=== PATIENT | female | born 1965 | race Caucasian/White ===

== ENCOUNTER → 2018-07-19 10:07 | Outpatient (CLI) | payer OTHER, SELFPAY ==
[2018-07-19 12:21] LABS: Absolute Lymphocyte Count 1.75 X10^3/ul (0.83-4.51); Absolute Neutrophil Count 2.8 X10^3/uL (2.0-7.7); Basophil# 0.08 X10^3/uL; Basophil% 1.5 % (0-1); Eosinophil# 0.29 X10^3/uL; Eosinophils% 5.4 % (0-5); Hematocrit 41.8 % (37-47); Hemoglobin 13.9 g/dl (12.0-15.0); Lymphocyte # 1.75 X10^3/ul (4.0); Lymphocyte % 32.6 % (19-41); Mean Corp Hgb Conc 33.3 g/gl (32-36); Mean Corpuscular Hgb 28.7 pg (27.0-32.0); Mean Corpuscular Volume 86.2 fL (81-99); Mean Platelet Vol. 10.9 fl (6.2-12.0); Monocyte% 7.5 % (0-10); Neutrophil # 2.82 X10^3/uL (2.7-7.7); Neutrophil % 52.6 % (47-70); Platelet Count 286 K/mm3 (150-450); RBC Distribution Width CV 13.6 % (11.6-14.6); RBC Distribution Width SD 42.2 fl (35.1-43.9); Red Blood Count 4.85 M/mm3 (4.2-5.4); White Blood Count 5.4 K/mm3 (4.4-11.0)
[2018-07-19 12:38] LABS: POSITIVE COUNT NO; POSITIVE DIFFERENTIAL NO; POSITIVE MORPHOLOGY NO
[2018-07-19 12:43] LABS: Vitamin D,25 Hydroxy 26.4 ng/mL (29.95-100.01)
[2018-07-19 12:50] LABS: Anion Gap 6 (5-15); BUN 12 mg/dL (7-18); BUN/Creat Ratio 14.2 RATIO (10-20); Calcium,Total 9.1 mg/dL (8.5-10.1); Chloride 106 mmol/L (98-107); Cholesterol 225 mg/dL (200); Creatinine, Serum 0.85 mg/dL (0.55-1.02); EST Glomerular Filtration Rate 75 mL/min (>60); Est Glom Filt Rate - Afr Amer 91 mL/min (>60); Glucose 85 mg/dL (74-106); High Density Lipoprotein 55 mg/dL; Potassium 4.3 mmol/L (3.5-5.1); Sodium Level 139 mmol/L (136-145); Thyroid Stim Hormone (TSH) 1.75 uIU/mL (0.358-3.74); Triglycerides 118 mg/dL; Very Low Density Lipoprotein 24 mg/dL (5-40)
== END ==
PROVIDERS: Family Provider Family Medicine; PCP Family Medicine; Visit Provider Family Medicine
DX: Z00.00 Encounter for general adult medical examination without abnormal findings (principal); R07.9 Chest pain, unspecified
CPT/HCPCS: 36415; 80048; 80061; 82306; 84443; 85025

== ENCOUNTER → 2018-08-02 06:56 | Outpatient (CLI) | payer OTHER, SELFPAY ==
--- NOTE | 2018-08-02 07:53 | CDU_ITS ---
Reason For Study: TIA Rt. Velocities/BP Lt. Velocities/BP Prox CCA 85.0/21.7 cm/sec. Prox CCA 79.2/24.0 cm/sec. Mid CCA 90.3/28.7 cm/sec. Mid CCA 76.8/27.0 cm/sec. Dist CCA 82.7/28.7 cm/sec. Dist CCA 73.9/31.7 cm/sec. Prox ICA 63.3/14.7 cm/sec. Prox ICA 69.2/29.3 cm/sec. Mid ICA 75.6/33.4 cm/sec. Mid ICA 68.3/25.8 cm/sec. Dist ICA 77.3/34.4 cm/sec. Dist ICA 84.9/38.8 cm/sec. Rt. ICA/CCA = .86. Lt. ICA/CCA = 1.1. Prox ECA 96.7/26.4 cm/sec. Prox ECA 73.9/22.3 cm/sec. Rt. Vert. 59.8/22.3 cm/sec. Lt. Vert. 39.9/14.7 cm/sec. Right Extracranial There is no significant atherosclerotic plaque noted in the right common carotid artery. There is no significant atherosclerotic plaque noted in the right internal carotid artery. There is no significant atherosclerotic plaque noted in the right external carotid artery. Antegrade flow is noted in the right vertebral artery. Left Extracranial There is no significant atherosclerotic plaque noted in the left common carotid artery. There is no significant atherosclerotic plaque noted in the left internal carotid artery. There is no significant atherosclerotic plaque noted in the left external carotid artery. Antegrade flow is noted in the left vertebral artery. Procedure Carotid Duplex 13217. Exam performed in department. Interpretation Summary No significant atherosclerotic plaque or stenosis noted in the internal carotid arteries bilaterally. Flow within the vertebral arteries is antegrade bilaterally. Ordering Physician: Toni Stiles Referring Physician: Toni Stiles Performed By: Kimberly Tran RVT
== END ==
PROVIDERS: Family Provider Family Medicine; PCP Family Medicine; Referring Provider Family Medicine; Visit Provider Family Medicine
DX: G45.9 Transient cerebral ischemic attack, unspecified (principal)
CPT/HCPCS: 93880

== ENCOUNTER → 2018-08-05 05:45 | Outpatient (CLI) | payer OTHER, SELFPAY ==
--- NOTE | 2018-08-05 10:28 | STRESSREP_ITS ---
Stress Test Report Exercise myocardial perfusion stress test. 53-year-old lady with a history of chest pain. Stress protocol: Resting EKG demonstrates normal sinus rhythm with a rate of 64 bpm normal intervals noted resting blood pressure 110/60 millimeter. The patient exercised according to regular Cameron protocol for a total duration of 5 minutes the [place] heart rate attained was 139 bpm which was 82% of maximum predicted heart rate the maximum workload was 7 metabolic equivalents. Patient completed 2 minutes into stage II of the Cameron protocol. The maximum blood pressure was 144/60 mmHg. At rest there were no ST or T wave changes noted suggest ischemia peak exercise no ST or T wave changes were noted suggest ischemia. Myocardial perfusion protocol. 12.0 mCi of technetium 99m sestamibi was injected at rest. The patient exercised according to regular Cameron protocol for 5 minutes and at peak exercise 31.0 mCi of technetium 99m sestamibi was injected stress images were obtained stress and rest images were reconstructed and compared in the short axis vertical long and horizontal long axis. Gated images were also obtained per Perfusion SPECT analysis: Review of the stress images demonstrate normal uptake of tracer noted in all areas of the myocardium. The resting images similarly demonstrate normal uptake of tracer noted in all areas of the myocardium. No reversibility is noted suggest ischemia no previous infarct is noted. Gated SPECT analysis: The gated ejection fraction is noted to be 74%. Conclusion: Normal exercise myocardial perfusion stress test at a moderate workload. Preserved ejection fraction.
== END ==
PROVIDERS: Family Provider Family Medicine; PCP Family Medicine; Referring Provider Family Medicine; Visit Provider Family Medicine
DX: R07.9 Chest pain, unspecified (principal)
CPT/HCPCS: 78452; 93017; A9500; A4216

== ENCOUNTER 2021-01-27 14:40 | Emergency (ER) | payer BC, SELFPAY ==
[2021-01-27 14:41] VITALS: BP 115/66; PULSE 93; RESP 17; TEMP 36.4; O2SAT 97; BMI 29.9
[2021-01-27 16:18] VITALS: BP 115/71; PULSE 81; RESP 16; O2SAT 99
[2021-01-27] MEDS: Lidocaine 1% (20 ml mdv) 20 ML Vial INFILT (16:31)
--- NOTE | 2021-01-27 17:09 | EX.ED.UPPERE ---
HPI History of Present Illness Chief Complaint: Laceration Informant: patient Occured/Mechanism Mechanism/Context: Yes crush Onset/Context/Timing Onset: Today Context: Onset with activity Timing: Continuous Quality of Pain: Dull Worsened by: Movement Relieved by: Nothing Associated Symptoms Associated Symptoms: Negative for Parasthesia and Weakness Narrative Narrative: Patient presents with laceration to her right thumb that occurred today. Patient states she was doing laundry and got her thumb caught in a ringer. Patient states that her thumb has been bleeding since the injury. Patient is unsure of her last tetanus. Patient denies any paresthesias or weakness. Patient denies any other injuries. Tetanus Immunization: Unknown PFSH PFS Medical History Anxiety Capps's palsy Smoker Home Medications buspirone 15 mg PO DAILY 01/27/21 [History Last Taken Unknown] cephalexin 500 mg PO Q6 #40 capsule 01/27/21 [Rx Last Taken Unknown] fluoxetine [Prozac] 40 mg PO DAILY 01/27/21 [History Last Taken Unknown] Allergy/AdvReac Type Severity Reaction Status Date / Time codeine Allergy Itching Verified 01/27/21 14:43 Surgical History (Updated 01/27/21 @ 17:[address] Eduardo Blancas DO) History of bilateral tubal ligation History of foot surgery History of tonsillectomy Social History Smoking Status: Current every day smoker ROS ROS ED Constitutional Constitutional ED: Denies chills or fever(s) Eyes Eyes: Denies blurry vision or change in vision ENT ENT ED: Denies rhinorrhea or sore throat Cardiovascular Cardiovascular: Denies chest pain or palpitations Respiratory/Chest Respiratory/Chest: Denies cough or dyspnea Gastrointestinal Gastrointestinal: Denies nausea or vomiting Genitourinary Genitourinary ED: Denies dysuria or hematuria Musculoskeletal Musculoskeletal: Denies back pain or neck pain Integumentary Denies abscess or rash Neurologic Neurologic: Denies headache(s) or weakness Allergic/Immunologic Allergic/Immunologic ED: Denies mouth swelling or urticaria EXAM Physical Exam Const Vital Signs: 01/27/21 14:41 01/27/21 16:18 Temperature 97.6 F L Temperature Source Temporal Pulse Rate 93 81 Respiratory Rate 17 16 Blood Pressure 115/66 115/71 Blood Pressure Mean 82 85 Pulse Ox 97 99 Oxygen Delivery Method Room Air Room Air Positive well nourished and well developed General Appearance ED: well developed HEENT Reports moist mucous membranes normocephalic Extremity Extremity Narrative: There is a 5 cm full-thickness V-shaped laceration over the volar aspect of the proximal phalanx of the right thumb. There is moderate gapping of the wound margins. The flexor tendon is exposed. There is no tendon laceration noted. There are no foreign bodies noted. There is moderate bleeding. Sensation was intact to light touch in all digits. Capillary refill is less than 2 seconds in all digits. Strength is 5/5 in flexion and extension of the IP and MP joints. Neuro oriented x3, CN's II-XII intact bilaterally, moves all extremities, no focal motor deficits and no sensory deficits noted Sensorium / Orientation: alert Psych mental status grossly normal MDM MDM MDM Narrative Medical decision making narrative: Patient was given a tetanus booster. The wound was cleaned and irrigated with copious amounts of normal saline. The wound was anesthetized with 1% plain lidocaine via digital block. The wound was closed with 7 simple interrupted #4-0 nylon sutures under sterile technique. Patient tolerated the procedure well. Bacitracin dressing was applied. Patient was given a dose of Keflex here. Patient was given a prescription for Keflex. Patient was instructed to keep the wound clean and dry. Patient was instructed to follow-up with her primary care physician in 7 to 10 days for wound recheck and suture removal. Patient understood and was agreeable with the plan. All questions were answered. Procedures Lacerations Right thumb: Length: 5 cm Depth: Sub Q Shape: Linear Prep: Sterile Conditions and Shure-Clens Laceration repair: Digital block, Irrigated, Lidocaine, Skin sutures and Wound explored Irrigated (ml): 100 Number of Sutures/[place]: 7 Suture Information: Ethilon, Simple and 4-0 Discharge Plan Triage Chief Complaint: Laceration ED Provider: Eduardo Blancas Dx/Rx/DC Orders Clinical Impression: Laceration of right thumb Instructions: ED Laceration, Hand: All Closures Prescriptions: New cephalexin [cephalexin] 500 MG capsule 500 mg PO Q6 Qty: 40 RF: 0 No Action fluoxetine [Prozac] 40 mg capsule 40 mg PO DAILY RF: 0 buspirone 15 mg tablet 15 mg PO DAILY RF: 0 Primary Care Provider: Giovanni Guajardo Referrals: Giovanni Guajardo MD [Primary Care Provider] - 10 Day for suture removal Disposition Disposition: Home, self care
[2021-01-27 17:26] VITALS: BP 105/60; PULSE 89; RESP 16; O2SAT 96
[2021-01-27] MEDS: Diphth,Pertuss(Acell),Tet Vac 0.5 ML Vial IM (17:28)
[2021-01-27] MEDS: Cephalexin 500 MG Capsule PO (17:28)
[2021-01-27 18:03] VITALS: PULSE 88; RESP 15; O2SAT 98
== END 2021-01-27 18:04 | disposition home or self-care (01) ==
PROVIDERS: Emergency Provider Emergency Medicine; PCP Family Medicine
DX: S61.011A Laceration without foreign body of right thumb without damage to nail, initial encounter (principal); F41.9 Anxiety disorder, unspecified; Z79.899 Other long term (current) drug therapy; F17.200 Nicotine dependence, unspecified, uncomplicated; Z23 Encounter for immunization; W31.89XA Contact with other specified machinery, initial encounter; Y93.E2 Activity, laundry; Y92.008 Other place in unspecified non-institutional (private) residence as the place of occurrence of the external cause; Y99.8 Other external cause status
CPT/HCPCS: 12002; 90715; 99284; A4216

== ENCOUNTER → 2024-12-11 | Outpatient (CLI) | payer OTHER, SELFPAY ==
--- NOTE | 2024-12-11 12:37 | RAD_ITS ---
PROCEDURE: ABD INC DECUB AND/OR ERECT 12/11/2024 REASON FOR EXAM: ABDOMINAL PAIN TECHNIQUE: Upright AP view of the abdomen and 2 supine AP views of the abdomen to include the entire abdomen and pelvis, 3 total images COMPARISON: None available FINDINGS: Portion of the right hemidiaphragm is excluded on the upright view limiting evaluation for potential free air. The bowel gas pattern appears within limits. No gaseous distention of bowel or evidence of mass effect identified. No abnormal abdominal calcification seen. Visualized lung bases appear clear. Visualized osseous structures appear within limits. RAD/Abd Inc Decub and/or Erect IMPRESSION: Portion of the right hemidiaphragm is excluded on the upright view limiting jhony luation for potential free air. The bowel gas pattern appears within limits. No gaseous distention of bowel or evidence of ma ss effect identified. Reading Location: [id number]
== END | disposition home or self-care (01) ==
LOC: MTRAD 12:35
PROVIDERS: PCP Family Medicine; Referring Provider Family Medicine; Visit Provider Family Medicine
DX: R10.9 Unspecified abdominal pain (principal)
CPT/HCPCS: 74019

== ENCOUNTER → 2025-09-14 | Outpatient (CLI) | payer OTHER, SELFPAY ==
--- NOTE | 2025-09-14 14:55 | RAD_ITS ---
PROCEDURE: WRIST MIN 3 VIEWS 09/14/2025 REASON FOR EXAM: FALL WITH INJURY TECHNIQUE: Procedure Code: RADWR Modality: DX Procedure: WRIST MIN 3 VIEWS COMPARISON: None FINDINGS: No acute fracture or suspicious osseous lesion. Mild narrowing of the radioscaphoid joint space without subchondral changes. Other joint spaces well-preserved. No suspicious soft tissue swelling or foreign body RAD/Wrist min 3 Views IMPRESSION: Mild, age consistent degenerative changes, no acute findings Reading Location: [id number]
--- OUTSIDE RECORDS SUMMARY | 2025-09-14 19:56 | XMS RPT_ITS | CCD ---
Author Organization [facility] Care Team Providers Care Boiler Testing Technician Name Role Phone Tj [employer], Ilda S Unavailable Unavailable Primary Care Provider Tiff mari Unavailable Primary Care Provider Ronald Alford MD Primary Care Provider Unavailable Primary Care Provider Ronald Alford MD Primary Care Provider Casandra MERRILL, Dr. Davila Primary Care Provider Go MERRILL, Dr. Muñoz Attending Provider Dr. Toni Stiles MD Referring Provider Ronald Guajardo Primary Care Unavailable Toni Stiles Referring Unavailable Toni Stiles Attending Unavailable Allergies Allergy Classification Reported Allergen(s) Allergy Type Date of Onset Reaction(s) Facility (6 sources) Codeine; Translations: [codeine] Drug Allergy 6 Itching [facility] (3 sources) Naproxen Drug Allergy 6 Mental Status Change [facility] Work Phone: Medications Current Medications Medication Drug Class(es) Dates Sig (Normalized) Sig (Original) aspirin 81 mg delayed release oral tablet (3 sources) Platelet Aggregation Inhibitor, Nonsteroidal Anti-inflammatory Drug take 1 tablet by mouth once daily aspirin, enteric coated (ASPIRIN, ENTERIC COATED) 81 mg EC tablet Take 81 mg by mouth once daily. 0 Active Comment on above: Take 81 mg by mouth once daily. busPIRone hydrochloride 15 mg oral tablet (12 sources) Start: 01-27-2021 take 1 tablet by mouth once daily Buspirone 15 mg tablet Active 15 mg PO DAILY January 27, 2021 12:00am Start: 10-02-2020 take 1 tablet by kim th twice daily busPIRone (BUSPAR) 15 mg tablet Indications: Anxiety Take 1 tablet by mouth twice daily. 180 tablet 1 10/02/2020 Active Start: 09-08-2015 take 1 tablet by kim twice daily BUSPIRONE HCL 15 MG TABS One tablet by mouth twice daily BUSPIRONE HCL [id number] Lesvia Morrison RN take 1 tablet by kim twice daily busPIRone (BUSPAR) 10 MG tablet Indications: CMT (Pupixqb-Mpbiv-Xpmli disease) Take 10 mg by mouth 2 times daily. Active Comment on above: Take 1 tablet by kim twice daily. cephalexin 500 mg oral capsule (1 source) Cephalosporin Antibacterial Start: 1 take 1 capsule by mouth every six hours Cephalexin 500 MG capsule Active 500 mg PO EVERY 6 HOURS 40 January 27, 2021 12:00am FLUoxetine 40 mg oral capsule (12 sources) Serotonin Reuptake Inhibitor Start: 1 take 1 capsule by mouth once daily Fluoxetine (Prozac) 40 mg capsule Active 40 mg PO DAILY January 27, 2021 12:00am Start: 09-08-2015 take 1 tablet by kim once daily FLUOXETINE HCL 20 MG TABS One tablet by mouth daily FLUOXETINE HCL [id number] Lesvia Morrison RN take 1 capsule by [facility] daily fluoxetine (PROZAC) 20 MG capsule Indications: CMT (Aoizvkg-Seepp-Tokmh disease) Take 20 mg by mouth daily. Active Comment on above: Take 1 capsule by [facility] daily. Naproxen (7 sources) Nonsteroidal Anti-inflammatory Drug Naproxen Sodium (KAREN VE ORAL) Indications: CMT (Deetrar-Xxlgg-Zybkl disease) Take by mouth. Active Naproxen Sodium (ALEVE ORAL) Indications: CMT (Iyhhuro-Dexuh-Vwsup disease) Take by mouth. 0 Active Completed/Discontinued Medications Medication Drug Class(es) Dates Sig (Normalized) Sig (Original) diclofenac sodium 0.03 mg/mg topical gel (2 sources) Nonsteroidal Anti-inflammatory Drug Start: 09-08-2015 End: 06-26-2017 DICLOFENAC SODIUM 3 % GEL apply twice daily DICLOFENAC SODIUM [id number] Lesvia Morrison RN Problems Active Problems Problem Classification Problem Date Documented Date Episodic/Chronic Abdominal pain (1 source) Unspecified abdominal pain; Translations: [Unspecified abdominal pain] Onset: 12-18-2024 Episodic Anxiety disorders (3 sources) Anxiety; Translations: [Anxiety disorder, unspecified] Onset: 02-05-2017 06-15-2017 Chronic Menopausal disorders (1 source) Postmenopausal bleeding; Translations: [Postmenopausal bleeding] Onset: 06-26-2017 06-26-2017 Chronic Open wounds of extremities (1 source) Laceration of right thumb; Translations: [Laceration without foreign body of right thumb without damage to nail, initial encounter] 01-27-2021 Episodic Other nervous system disorders (10 sources) Hereditary motor and sensory neuropathy; 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 04-08-2015 Chronic Other screening for suspected conditions (not mental disorders or infectious disease) (2 sources) Patient encounter status; Translations: [Encounter for screening mammogram for malignant neoplasm of breast] Episodic Substance-related disorders (1 source) Tobacco dependence syndrome; Translations: [Nicotine dependence, unspecified, uncomplicated] Onset: 09-08-2015 09-08-2015 Chronic Past or Other Problems Problem Classification Problem Date Documented Da te Episodic/Chronic Nonspecific chest pain (3 sources) Chest pain; Translations: [Chest pain, unspecified] Onset: 01-16-2013 Resolved: 02-05-2017 09-08-2015 Episodic Other connective tissue disease (2 sources) Fibromyalgia; Translations: [Fibromyalgia] Onset: 12-16-2014 Resolved: 04-28-2015 04-28-2015 Episodic Other lower respiratory disease (1 source) Dyspnea; Translations: [Shortness of breath] Onset: 09-08-2015 09-08-2015 Episodic Residual codes; unclassified (3 sources) Tobacco user; Translations: [Tobacco use] Onset: 02-05-2017 02-05-2017 Episodic Results Test Name Value Interpretation Reference Range Facility [facility] Decub and/or Erecton 12-11-2024 Abd Inc Decub and/or Erect [facility] Imaging Services [address] [place] [address] [employer] Decub and/or Erect MR#: [id number] Acct: [id number] Name: PREMA GALLEGOBRANDIE Bowie Rep #: [id number] : 1965 F 59 From: Luis Barros MD PCP: Dr. Ronald Guajardo MD Status: REG CLI Study: [employer] Decub and/or Erect Date of Exam: 12/11 Exam# [id number] Ordering Dr: Toni Stiles MD PROCEDURE: ABD INC DECUB AND/OR ERECT 12/11/2024 REASON FOR EXAM: ABDOMINAL PAIN TECHNIQUE: Upright AP view of the abdomen and 2 supine AP views of the abdomen to include the entire abdomen and pelvis, 3 total images COMPARISON: None available FINDINGS: Portion of the right hemidiaphragm is excluded on the upright view limiting evaluation for potential free air. The bowel gas pattern appears within limits. No gaseous distention of bowel or evidence of mass effect identified. No abnormal abdominal calcification seen. Visualized lung bases appear clear. Visualized osseous structures appear within limits. RAD/[facility] [employer] Decub and/or Erect IMPRESSION: Portion of the right hemidiaphragm is excluded on the upright view limiting evaluation for potential free air. The bowel gas pattern appears within limits. No gaseous distention of bowel or evidence of mass effect identified. Reading Location: [id number] CC: Dr. Toni Stiles MD; Dr. Ronald Guajardo MD Metal Ceiling Builder: Signed [facility] Office Visit: postmenopausal bleedingon 06-26-2017 Fall risk assessment No Invalid Interpretation Code [facility] Protein mass conc Done Invalid Interpretation Code [facility] Tobacco smoking status NHIS Never Invalid Interpretation Code [facility] Tobacco smoking status FLIS Current every day smoker Invalid Interpretation Code [facility] Clinical Lists Update: Prelo stockroom coordinator 12-17-2014 Chloride molar conc 102 mmol/L Invalid Interpretation Code [facility] CO2 ppres (BldV) 23 mmol/L Invalid Interpretation Code [facility] Creatinine mass conc 0.84 mg/dL Invalid Interpretation Code [facility] Glucose mass conc 72 mg/dL Invalid Interpretation Code [facility] Potassium molar conc 4.8 mmol/L Invalid Interpretation Code [facility] Sodium molar conc 140 mmol/L Invalid Interpretation Code [facility] Thyrotropin Qn 1.54 u[iU]/mL Invalid Interpretation Code [facility] Urea nitrogen mass conc 20 mg/dL Invalid Interpretation Code [facility] Clinical Lists Update: Prelo stockroom coordinator 12-16-2014 Hematocrit Auto Volume Fraction (Bld) 39.6 % Invalid Interpretation Code [facility] Hemoglobin mass conc (Bld) 12.8 g/dL Invalid Interpretation Code [facility] MCH Auto Entitic mass (RBC) 27.9 pg Invalid Interpretation Code [facility] MCHC Auto mass conc (RBC) 32.3 g/dL Invalid Interpretation Code [facility] MCV Auto Entitic volume (RBC) 86.5 fL Invalid Interpretation Code [facility] Platelets Auto #/vol (Bld) 253 10*3/mm3 Invalid Interpretation Code [facility] RBC Auto #/vol (Bld) 4.58 10*6/uL Invalid Interpretation Code [facility] WBC Auto #/vol (Bld) 5.92 10*3/uL Invalid Interpretation Code [facility] Clinical Lists Update: Prelo stockroom coordinator 10-25-2010 Cholesterol in HDL mass conc 67 mg/dL Invalid Interpretation Code [facility] Cholesterol in LDL mass conc 75 mg/dL Invalid Interpretation Code [facility] Cholesterol mass conc 155 mg/dL Invalid Interpretation Code [facility] Lipoprotein.pre-bet a mass conc 13 mg/dL Invalid Interpretation Code [facility] Triglyceride mass conc 66 mg/dL Invalid Interpretation Code [facility] Vital Signs Date Time Vital Sign Value Performing Clinician Facility 06-26-2017 14:56-0400 BMI (Body Mass Index) 30.48 kg/m2 Ilda Spencer NP [facility] [place] 06-26-2017 14:56-0400 Body Temperature 97 [degF] Ilda Spencer NP [facility] [place] 06-26-2017 14:56-0400 BP Diastolic 74 mm[Hg] Ilda Spencer NP [facility] [place] 06-26-2017 14:56-0400 BP Systolic 105 mm[Hg] Ilda Spencer NP [facility] [place] 06-26-2017 14:56-0400 Height 162.56 cm Ilda Spencer NP [facility] [place] 06-26-2017 14:56-0400 Pulse (Heart Rate) 89 /min Ilda Spencer NP [facility] 06-26-2017 14:56-0400 Respiratory Rate 16 /min Ilda Spencer NP [facility] 06-26-2017 14:56-0400 Weight 80.56 kg Ilda Spencer NP [facility] Encounters Encounter Date Encounter Type Care Provider Facility Start: 05-23-2025 End: 05-23-2025 Letter encounter [facility] Start: 12-11-2024 End: 12-11-[address] Ronald Guajardo MD Work Phone: [facility] Work Phone: Start: 12-11-2024 End: 12-11-[address] Toni Stiles MD -Radiology, [place] Work Phone: Start: 12-11-2024 End: 12-11-2024 ambulatory Ronald Guajardo Facility:[facility] Start: 02-06-2024 ambulatory Ronald Guajardo MD Work Phone: Internal Medicine [facility] Start: 01-15-2024 ambulatory Cecily Underwood MA [facility] Start: 08-26-2023 Letter encounter [facility] Start: 03-15-2022 ambulatory Ronald Guajardo MD Work Phone: Internal Medicine [facility] Start: 02-26-2022 Letter encounter [facility] Start: 11-27-2021 Letter encounter [facility] Start: 02-20-2021 End: 02-20-2021 Letter encounter [facility] Start: 12-12-2020 End: 12-12-2020 Orders Only Khadra Villegas Work Phone: [facility] Start: 11-21-2020 End: 11-21-2020 Letter encounter [facility] Procedures Date Procedure Procedure Detail Performing Clinician Start: 12-11-2024 Plain X-ray abdomen Dr. Ronald Guajardo MD Work Phone: Start: 07-08-2019 Adult depression screening assessment Ronald Guajardo MD Work Phone: Start: 06-26-2017 Cervical smear biops y taken Pap smear Ilda Spencer NP Start: 06-26-2017 End: 06-26-2017 Endometrial bx w/wo endocervix bx w/o dilat spx Ilda Spencer [employer] [facility] Work Phone: Start: 06-26-2017 Screening mammography Mammogra m yearly screening Ilda Tj [employer] [facility] Start: 02-06-2017 Lipid 1996 panel - S sobeida or Plasma Cecily Underwood MA Start: 02-11-2015 Mammography Ronald Sol MD Work Phone: Plan of Treatment Date Care Activity Detail Author Start: 01-27-2031 Urine microalbumin profile DTaP,Tdap,Td Vaccine (2 - Td or Tdap) [facility] Start: 06-17-2025 Influenza vaccination Influenza Vacc ine (#1) [facility] Start: 05-18-2025 COVID-19 Vaccine ( season) COVID-19 Vaccine ( season) [facility] Start: 05-18-2024 Influenza vaccination Influenz a Vaccine (Season Ended) [facility] Start: 09-17-2023 Behavioral Health Screening Behavioral Health Screening [facility] Start: 05-18-2023 Covid-19 Vaccine ( season) Covid-19 Vaccine ( season) [facility] Start: 05-18-2023 Influenza vaccination Influenza Vacc ine (#1) [facility] Start: 05-18-2022 Influenza vaccination INFLUENZ A (Season Ended) [facility] Start: 02-06-2022 Lipid panel Lipid Screening [facility] Start: 02-06-2022 LIPID SCREEN LIPID SCREEN [facility] Start: 04-17-2021 Influenza vaccination Influenza Vacc ine (#1) [facility] Start: 07-08-2020 Adult depression screening assessment DEPRESSION SCREENING [facility] Start: 06-17-2020 Influenza vaccination Influenza Vacc ine (#1) [facility] Start: 02-07-2020 DIABETES SCREEN DIABETES SCREEN [facility] Start: 02-07-2020 Diabetes Screening Diabetes Screenin g [facility] Start: 06-21-2018 COLORECTAL CANCER SCREENING COLORECTAL CANCER SCREENING [facility] Start: 06-21-2018 FECAL OCCULT BLOOD FECAL OCCULT BLOO D [facility] Start: 06-21-2018 Screening for malign ant neoplasm of colon [facility] Start: 07-24-2017 HPV TESTING HPV TESTING [facility] Start: 07-24-2017 PAP TESTING PAP TESTING [facility] Start: 07-24-2017 Screening for malign ant neoplasm of cervix [facility] Start: 06-26-2017 End: 06-26-2017 Appointment Appointment [facility] Start: 06-26-2017 End: 06-26-2017 *CBC with Differential *CBC with Differential [facility] Start: 06-26-2017 End: 06-26-2017 Endometrial bx w/wo endocervix bx w/o dilat spx Endometrial Biopsy [facility] Start: 06-26-2017 End: 06-26-2017 Mammogram, screening Mammogram, Screening, both breasts [facility] Start: 06-26-2017 End: 06-26-2017 Thyrotropin Qn *TSH [facility] Start: 06-26-2017 End: 06-26-2017 Us pelvic nonobstetric real-time image complete US Pelvis [facility] Start: 06-26-2017 End: 06-26-2017 Us transvaginal US Transvaginal [facility] Start: 2017 Measurement of occul t blood in single stool specimen FIT [facility] Start: 2017 Pneumococcal vaccination Pneumococcal Vaccine(s) (50+ yrs) (1 of 1 - PCV) [facility] Start: 2017 Screening for malign ant neoplasm of breast Mammography [facility] Start: 2017 Screening for malign ant neoplasm of colon CRC Screening [facility] Start: 2017 SHINGRIX VACCINE (1 of 2) SHINGRIX VACCINE (1 of 2) [facility] Start: 2017 Varicella-zoster vaccine (product) Shingles (RZV) Vaccine (1 of 2) [facility] Start: 02-12-2016 Mammography MAMMOGRAM [facility] Start: 02-12-2016 Screening for malign ant neoplasm of breast Mammogram Screening [facility] Start: 2012 Cholesterol [Mass/Vol] Cholesterol [facility] Start: 2012 COLOGUARD (FIT-DNA) COLOGUARD (FIT-D NA) [facility] Start: 2012 Colonoscopy COLONOSCOPY [facility] Start: [address] COLONOGRAPHY [facility] Start: 2012 Lipid panel Cholesterol [facility] Start: 2012 Screening for malign ant neoplasm of colon [facility] Start: 2012 SIGMOIDOSCOPY SIGMOIDOSCOPY [facility] Start: 2007 Screening for malign ant neoplasm of breast [facility] Start: 1988 Screening for malign ant neoplasm of cervix [facility]ear [facility] Start: 1986 Hepatitis A (HAV) Vaccine (optional start 19+ years) Hepatitis A (HAV) Vaccine (optional start 19+ years) [facility] Start: 1986 Hepatitis B vaccination Hepati tis B (HBV) Vaccine (1 of 3 - 19+ 3-dose series) [facility] Start: 1986 Hepatitis B Vaccine (1 of 3 - 19+ 3-dose series) Hepatitis B Vaccine (1 of 3 - 19+ 3-dose series) [facility] Start: 1986 Urine microalbumin profile DTAP,TDAP,TD (1 - Tdap) [facility] Start: 1985 Hepatitis C antibody , confirmatory test [facility] Start: 1985 Hepatitis C screening M [facility] Start: 1985 HEPATITIS C SCREENING HEPATITIS C SD REENING [facility] Start: 1985 HIV SCREENING HIV SCREENING [facility] Start: 1985 HIV screening HIV Screening [facility] Start: 1985 Tetanus + diphtheria + acellular pertussis vaccine (product) Tdap Booster [facility] Start: 1982 HIV screening HIV Test [facility] Start: 1979 COVID-19 Vaccine (1) COVID-19 Vaccin e (1) [facility] Start: 1973 PNEUMOCOCCAL (1 - PCV) PNEUMOCOCCAL (1 - PCV) [facility] Start: 1973 Pneumococcal vaccination Pneumococcal Vaccine (1 of 2 - PCV) [facility] Start: 1972 COVID-19 Vaccine (#1) COVID-19 Vacci ne (#1) [facility] Start: 1972 COVID-19 Vaccine (1) COVID-19 Vaccin e (1) [facility] Start: 1967 COVID-19 Vaccine (#1) COVID-19 Vacci ne (#1) [facility] Start: 1967 Colonoscopy [facility] Start: 1967 Screening for malign ant neoplasm of colon Colonoscopy [facility] End: 03-07-2025 MG Breast Screening ANDREW SCREENING Radiology Routine Encounter for screening mammogram for breast cancer 1 Occurrences starting 02/06/2024 until 03/07/2025 [facility] Work Phone: Comment on above: 1 Occurrences starti ng 02/06/2024 until 03/07/2025 End: 04-14-2023 Screening mammography bi 2-view breast inc cad ANDREW SCREENING Radiology Routine Encounter for screening mammogram for breast cancer 1 Occurrences starting 03/15/2022 until 04/14/2023 [facility] Work Phone: Comment on above: 1 Occurrences starti ng 03/15/2022 until 04/14/2023 Immunizations Immunization Date Immunization Notes Care Provider Fa cility 01-27-2021 tetanus toxoid, redu rosanna diphtheria toxoid, and acellular pertussis vaccine, adsorbed Cecily Underwood MA [facility] 06-15-2017 influenza virus vacc ine, unspecified formulation Cecily Underwood MA [facility] 10-04-2012 influenza, seasonal, injectable, preservative free Cecily Underwood [facility] Payers Date Payer Category Payer Private Health Insurance [id number] 2024 Self-pay 2019 Unknown IRENE GUERRA PPO [id number] 2019-Present [phone] [address] [place] [address] PPO [id number] 2015 Commercial Indemnity [employer] - HMO/PPO/POS [id number] 2015 Unknown [employer] - HMO/PPO/POS [employer] PPO/CLASSIC/PLUS [id number] 2015-Present PPO [id number] 2015 Unknown [id number] Unknown ANTHEM [id number] Unknown [id number] Unknown [id number] Social History Date Type Detail Facility Start: 04-08-2015 End: 01-27-2021 Tobacco smoking status FLIS Current every day smoker [facility] Start: 04-08-2015 Alcohol intake Current drinker of alcohol (finding) [facility] Start: 1965 Sex Assigned At Not on file [facility] Start: 04-08-2015 End: 08-25-2020 Alcohol intake [facility] History of tobacco use Cigarette Smoker C [facility] Start: 09-30-2020 Alcohol intake Current non-drinker of alcohol (finding) [facility] Start: 09-30-2020 History SDOH Alcohol Frequency 1 [facility] Start: 09-30-2020 History SDOH Social Connections Phone 5 [facility] Start: 09-30-2020 History SDOH Social Connections Membership 2 [facility] Start: 09-30-2020 History SDOH Social Connections Living 3 [facility] Start: 09-30-2020 History SDOH Physical Activity DPW 4 [facility] Start: 09-30-2020 Education 21 [facility] Start: 08-25-2020 End: 09-30-2020 Gender identity Not on file [facility] Start: 11-10-2016 Tobacco use and exposure Smokeless tobacco non-user [facility] Do you belong to any clubs or organizations such as uatsdin groups, unions, fraternal or athletic groups, or school groups? No [facility] Are you now , , , , never or living with a partner? [facility] How often to you hav e a drink containing alcohol? Never [facility] Average Number of Drinks Not on file [facility] How hard is it for y ou to pay for the very basics like food, housing, medical care, and heating Not very hard [facility] Do you feel stress - tense, restless, nervous, or anxious, or unable to sleep at night because your mind is troubled all the time - these days [OSQ] Not at all [facility] (I/We) worried wheth er (my/our) food would run out before (I/we) got money to buy more. Never true [facility] Start: 01-27-2021 Cigarettes Cigarettes [facility] Start: 02-16-2015 End: 12-18-2024 Sex Female (finding) [facility] Start: 1965 Sex Assigned At Female [facility] Start: 04-08-2015 Details of drug misuse behavior Does not misuse drugs (situation) [facility] Clinical Notes 12-16-2014 to 12-12-2024 Cecily Underwood MA - 01/15/2024 3:12 PM EDT Note Date & Type Note Facility 12-12-2024 Radiology Diagnostic study note [facility] Imaging Services [address] [place], [place] [id number] [employer] Decub and/or Erect MR#: [id number] Acct: [id number] Name: KEKE GALLEGO Rep #: [id number] : 1965 F 59 From: Clinton Barros MD PCP: Dr. Ronald Guajardo MD Status: REG C LI Study:[employer] Decub and/or Erect Date of Exam : 12/11/24 Exam# [id number] Ordering Dr: Toni Stiles MD PROCEDURE: ABD INC DECUB AND/OR ERECT 12/11/2024 REASON FOR EXAM: ABDOMINAL PAIN TECHNIQUE: Upright AP view of the abdomen and 2 supine AP views of the abdomen to include the entire abdomen and pelvis, 3 total images COMPARISON: None available FINDINGS: Portion of the right hemidiaphragm is excluded on the upright view limiting evaluation for potential free air. The bowel gas pattern appears within limits. No gaseous distention of bowel or evidence of mass effect identified. No abnormal abdominal calcification seen. Visualized lung bases appear clear. Visualized osseous structures appear within limits. RAD/Abd Inc Decub and/or Erect IMPRESSION: Portion of the right hemidiaphragm is excluded on the upright view limiting evaluation for potential free air. The bowel gas pattern appears within limits. No gaseous distention of bowel or evidence of mass effect identified. Reading Location: [id number] CC: Dr. Toni Stiles MD; Dr. Ronald Guajardo MD ~ Metal Ceiling Builder: Signed [facility] 02-06-2024 Note Patient Outreach (IN TMMN) KEKE GALLEGO ([id number]) 1965 F Date Time Provider Department 02/06/24 RONALD GUAJARDO During your visit today, we recorded the following information about you: Allergies As of Date: 02/06/2024 Noted Allergy Reaction CODEINE 02/16/2006 9 - Itching NAPROSYN (NAPROXEN) 09/30/2015 1 - Mental Status Change Date Reviewed: 07/08/2019 Reviewed by: Alexus Davis (Senior Investigator) - Fully Assessed Visit Diagnosis:Encounter for screening mammogram for breast cancer [Z12.31] Order(s):[facility] SCREENING [[id number]] Order #: [id number] FUTURE Prescriptions as of 02/11/2024 - busPIRone (BUSPAR) 15 mg tablet Take 1 tablet by mouth twice daily. - FLUoxetine HCl (PROZAC) 40 mg capsule Take 1 capsule by mouth once daily. - aspirin, enteric coated (ASPIRIN, ENTERIC COATED) 81 mg EC tablet Take 81 mg by mouth once daily. 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 Author Type: Crane Man Type: Progress Notes Filed: 01/15/2024 15:19 Note Text: POPULATION HEALTH NAVIGATION OUTREACH Action/FYI Last office visit 10/02/20, no showed for 04/04/21 Reason for Outreach Care Gap/HCC or Scheduling Wellness Visits Care Gaps due: Physical Annual Wellness Visit Breast Cancer Screening Patient Contacted: Letter mailed Navigation Signature: Cecily Underwood MA January 15, 2024 3:12 PM [facility] 01-15-2024 History of Present illness Narrative POPULATION HEALTH NAVIGATION OUTREACH Action/FYI Last office visit 10/02/20, no showed for 04/04/21 Reason for Outreach Care Gap/HCC or Scheduling Wellness Visits Care Gaps due: Physical Annual Wellness Visit Breast Cancer Screening Patient Contacted: Letter mailed Navigation Signature: Cecily Underwood MA January 15, 2024 3:12 PM documented in this encounter [facility] 01-15-2024 Note Patient Outreach (FA MPWS) KEKE GALLEGO ([id number]) 1965 F Date Time Provider Department 01/15/24 CECILY UNDERWOOD During your visit today, we recorded the following information about you: Cecily Underwood MA 01/15/2024 3:19 PM Signed POPULATION HEALTH NAVIGATION OUTREACH Action/FYI Last office visit 10/02/20, no showed for 04/04/21 Reason for Outreach Care Gap/HCC or Scheduling Wellness Visits Care Gaps due: Physical Annual Wellness Visit Breast Cancer Screening Patient Contacted: Letter mailed Navigation Signature: Cecily Underwood MA January 15, 2024 3:12 PM Allergies As of Date: 01/15/2024 Noted Allergy Reaction CODEINE 02/16/2006 9 - Itching NAPROSYN (NAPROXEN) 09/30/2015 1 - Mental Status Change Date Reviewed: 07/08/2019 Reviewed by: Alexus Davis (Senior Investigator) - Fully Assessed Prescriptions as of 01/15/2024 - busPIRone (BUSPAR) 15 mg tablet Take 1 tablet by mouth twice daily. - FLUoxetine HCl (PROZAC) 40 mg capsule Take 1 capsule by mouth once daily. - aspirin, enteric coated (ASPIRIN, ENTERIC COATED) 81 mg EC tablet Take 81 mg by mouth once daily. 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] Anxiety [F41.9] 02/05/2017 Tobacco abuse [Z72.0] 02/05/2017 Letter Text Encounter Status:Closed by CECILY UNDERWOOD on 01/15/24 [facility] 02-21-2023 Note Patient Outreach (IN TMMN) KEKE GALLEGO Azeb ([id number]) 1965 F Date Time Provider Department 02/21/23 RONALD GUAJARDO During your visit today, we recorded the following information about you: Allergies As of Date: 02/21/2023 Noted Allergy Reaction CODEINE 02/16/2006 9 - Itching NAPROSYN (NAPROXEN) 09/30/2015 1 - Mental Status Change Date Reviewed: 07/08/2019 Reviewed by: Alexus Davis LPN - Fully Assessed Visit Diagnosis:Encounter for screening mammogram for breast cancer [Z12.31] Order(s):[facility] SCREENING [[id number]] Order #: [id number] FUTURE Prescriptions as of 02/26/2023 - busPIRone (BUSPAR) 15 mg tablet Take 1 tablet by mouth twice daily. - FLUoxetine HCl (PROZAC) 40 mg capsule Take 1 capsule by mouth once daily. - aspirin, enteric coated (ASPIRIN, ENTERIC COATED) 81 mg EC tablet Take 81 mg by mouth once daily. 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] Anxiety [F41.9] 02/05/2017 Tobacco abuse [Z72.0] 02/05/2017 Encounter Status:Closed by EPIC, PRODUSER on 02/26/23 [facility] 12-16-2014 History of Past i llness Narrative Problem Noted Date Resolved Date Fibromyalgia 12/16/2014 04/28/2015 Chest pain 01/16/2013 02/05/2017 documented as of this encounter (statuses as of 03/20/2022) [facility] [place] [facility] Diagnosis Encounter for screening mammogram for breast cancer documented in this encounter [facility] [place] [facility] Diagnosis Encounter for screening mammogram for breast cancer documented in this encounter [facility] noteNo assessment information availableWBucyrus Community Hospital Work Phone: Reason for referral (narrative)* Diagnostic Procedure Only (Routine) - Pending Review Specialty Diagnoses / Procedures Referred By Chencho christianson Referred To Contact [facility] Diagnoses Encounter for screening mammogram for breast cancer Procedures ANDREW SCREENING SCREENING MAMMOGRAPHY BI 2-VIEW BREAST INC Ronald Donovan MD [address] [place] [address] [facility] [address] [place] [address] Referral ID Status Reason Start Date Expiration Date Visits Requested Visits Authorized [id number] Pending Review Auto-Generat ed Referral 03/15/2022 04/14/2023 1 1 [facility] for referral (narrative)* Diagnostic Procedure Only (Routine) - Pending Review Specialty Diagnoses / Procedures Referred By Chencho christianson Referred To Contact [facility] Diagnoses Encounter for screening mammogram for breast cancer Procedures ANDREW SCREENING SCREENING MAMMOGRAPHY BI 2-VIEW BREAST INC Ronald Donovan MD [address] [place] [address] [facility] [address] [address] Referral ID Status Reason Start Date Expiration Date Visits Requested Visits Authorized [id number] Pending Review Auto-Generat ed Referral 02/06/2024 03/07/2025 1 1 [facility] for referral (narrative)No reason for referral information availableWBucyrus Community Hospital Work Phone: Summary Purpose Family History No Family History Records FoundNo Family History Records Found Advance Directives No Advanced Directives Records FoundNo Advanced Directives Records Found Chief Complaint and Reason for Visit Chief Complaint Admit Date ABDOMINAL PAIN December 11, 2024 12: 32pm Additional Source Comments Source Comments (unrecognize d section and content) In the event this informatio n is protected by the Federal Confidentiality of Alcohol and Drug Abuse Patient Records regulations: The Federal rules restrict any use of the information to criminally investigate or prosecute any alcohol or drug abuse patient.[facility] the event this information is protected by the Federal Confidentiality of Alcohol and Drug Abuse Patient Records regulations: The Federal rules restrict any use of the information to criminally investigate or prosecute any alcohol or drug abuse patient.[facility] the event this information is protected by the Federal Confidentiality of Alcohol and Drug Abuse Patient Records regulations: The Federal rules restrict any use of the information to criminally investigate or prosecute any alcohol or drug abuse patient.[facility] Care Teams (unrecognized sec tion and content) 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 Toni Stiles MD Family Provider Active Dr. Ronald Guajardo MD Primary Care Provider Active Team Status: Inactive Member Role Status Dates Dr. Ronald Guajardo MD Primary Care Provider Active Start: December 11, 2024 End: December 11, 2024 Dr. Toni Stiles MD Attending Provider Active Start: December 11, 2024 End: December 11, 2024 Dr. Toni Stiles MD Referring Provider Active Start: December 11, 2024 End: December 11, 2024 INFORMATION SOURCE (unrecogn ized section and content) DATE CREATED AUTHOR 02/11/2024 [facility] DATE CREATED AUTHOR AUTHOR'S ORGANIZ ATION 12/21/[address] [facility] Goals (unrecognized section and content) Goals may be documented in a n alternate section FOR RECORDS PERTAINING TO PATIENTS WHO ARE OR HAVE BEEN ENROLLED IN A CHEMICAL DEPENDENCY/SUBSTANCEABUSE PROGRAM, SOME INFORMATION MAY BE OMITTED. This clinical summary was aggregated from multiple sources. Caution should be exercised in using it in the provision of clinical care. This summary normalizes information from multiple sources, and as a consequence, information in this document may materially change the coding, format and clinical context of patient data. In addition, data may be omitted in some cases. CLINICAL DECISIONS SHOULD BE BASED ON THE PRIMARY CLINICAL RECORDS. [employer] provides no warranty or guarantee of the accuracy or completeness of information in this document.
== END | disposition home or self-care (01) ==
LOC: MTRAD 14:43
PROVIDERS: PCP Family Medicine; Referring Provider Family Medicine; Visit Provider Family Medicine
DX: T14.90XA Injury, unspecified, initial encounter (principal); W19.XXXA Unspecified fall, initial encounter
CPT/HCPCS: 73110